=== PATIENT | male | born 1995 | race Caucasian/White ===

== ENCOUNTER 2018-08-08 21:00 | Emergency (ER) | payer BC ==
[2018-08-08] MEDS ORDERED: IBUPROFEN 800 MG TAB PO ONE (21:24)
[2018-08-08] MEDS ORDERED: ACETAMINOPHEN 500 MG TAB PO ONE (21:24)
[2018-08-08] MEDS ORDERED: NS 1,000 ML IV ONE ×2 (21:26→21:37)
--- NOTE | 2018-08-08 21:39 | EDPHY ---
H & P Stated Complaint: Cough x 4 days, body aches and fever tonight Time Seen by Provider: 08/08/18 21:28 HPI/ROS: CHIEF COMPLAINT: Flu-like symptoms since 4 days HISTORY OF PRESENT ILLNESS: 23-year-old immunocompetent male, no influenza vaccination, complaining flu-like symptoms for the past 4 days. No Tylenol or Motrin [id number] remedies. He is complaining myalgia, fever, cough, rhinorrhea. REVIEW OF SYSTEMS: 10 systems reviewed and negative with the exception of the elements mentioned in the history of present illness PAST MEDICAL & SURGICAL HISTORY: No pertinent medical or surgical history no no seasonal influenza vaccination SOCIAL HISTORY: nonsmoker . PHYSICAL EXAM (Prior to examination, patient consented to physical exam, hands were washed and my usual and customary physical exam procedures followed) 1) GENERAL: Well-developed, well-nourished, alert and oriented. Appears to be in no acute distress. 2) HEAD: Normocephalic, atraumatic 3) HEENT: Pupils equal, round, reactive to light bilaterally. Sclera anicteric. Nasopharynx, oropharynx, clear, no lesions. Dry mucous membranes. No tonsillar enlargement or exudate. Ears bilaterally with normal tympanic membranes. Signs of otitis media otitis externa 4) NECK: Full range of motion, no meningeal signs. 5) LUNGS: Clear auscultation bilaterally, no wheezes, no rhonchi, no retractions. 6) HEART: Regular rate and rhythm, no murmur, no heave, no gallop. 7) ABDOMEN: No guarding, no rebound, no focal tenderness, negative McBurney's, negative Chanel's, negative Rovsing's, negative peritoneal sign, 8) MUSCULOSKELETAL: Moving all extremities, no focal areas of tenderness, no obvious trauma. No peripheral edema or discoloration. 9) BACK: No CVA tenderness, no midline vertebral tenderness, no fluctuance, no step-off, no obvious trauma, no visual or palpable abnormality. 10) SKIN: No rash, no petechiae. 11) Psychiatric: Patient is oriented X 3, there is no agitation. DIFFERENTIAL DIAGNOSIS: in no particular order including but not limited to pneumonia, bronchitis, influenza, meningitis - Personal History Current Tetanus Diphtheria and Acellular Pertussis (TDAP): Unsure - Medical/Surgical History Hx Asthma: No Hx Chronic Respiratory Disease: No Hx Diabetes: No Hx Cardiac Disease: No Hx Renal Disease: No Hx Cirrhosis: No Hx Alcoholism: No Hx HIV/AIDS: No Hx Splenectomy or Spleen Trauma: No Other PMH: "enlarged adenoids" - Social History Smoking Status: Former smoker Constitutional: Initial Vital Signs Temperature (C) 39.4 C H 08/08/18 21:13 Heart Rate 117 H 08/08/18 21:13 Respiratory Rate 18 08/08/18 21:13 Blood Pressure 122/86 H 08/08/18 21:13 O2 Sat (%) 96 08/08/18 21:13 O2 Delivery Mode Room Air Allergies/Adverse Reactions: No Known Allergies Allergy (Unverified 08/08/18 21:13) Home Medications: Medication Instructions Recorded NK [No Known Home Meds] 08/08/18 Medical Decision Making - Diagnostics Imaging Results: Imaging Impressions Chest X-Ray 08/08/18 21:35 Impression: No focal pneumonia. Images reviewed by myself ED Course/Re-evaluation: 10:06 p.m.: Re-evaluation after Tylenol Motrin, feeling improvement. Care of patient under supervision of secondary supervising physician Dr Herrera with whom I discussed case. 10:42 p.m.: Influenza a testing is positive. Discussed this with the patient. Discussed contagion precautions. He has been symptomatic for 4 days. Side treatment window. No evidence of infiltrate on exam. He is not hypoxemic. He is breathing comfortably. Pain will be discharge, supportive care, Tylenol, Motrin, fluids rest. My usual and customary discharge precautions instructions provided. Care of patient under supervision of secondary supervising physician Dr Herrera with whom I discussed case. - Data Points Laboratory Results: Laboratory Results 08/08/18 21:35 08/08/18 21:35 08/08/18 08/08/18 08/08/18 21:35 21:35 21:35 WBC 6.28 10^3/uL 10^3/uL (3.80-9.50) RBC 4.49 10^6/uL 10^6/uL (4.40-6.38) Hgb 14.2 g/dL g/dL (13.7-17.5) Hct 38.6 % L % (40.0-51.0) MCV 86.0 fL fL (81.5-99.8) MCH 31.6 pg pg (27.9-34.1) MCHC 36.8 g/dL H g/dL (32.4-36.7) RDW 11.7 % % (11.5-15.2) Plt Count 225 10^3/uL 10^3/uL (150-400) MPV 8.8 fL fL (8.7-11.7) Neut % (Auto) 78.9 % H % (39.3-74.2) Lymph % (Auto) 7.8 % L % (15.0-45.0) Kimble % (Auto) 12.4 % % (4.5-13.0) Eos % (Auto) 0.3 % L % (0.6-7.6) Baso % (Auto) 0.3 % % (0.3-1.7) Nucleat RBC Rel Count 0.0 % % (0.0-0.2) Absolute Neuts (auto) 4.95 10^3/uL 10^3/uL (1.70-6.50) Absolute Lymphs (auto) 0.49 10^3/uL L 10^3/uL (1.00-3.00) Absolute Monos (auto) 0.78 10^3/uL 10^3/uL (0.30-0.80) Absolute Eos (auto) 0.02 10^3/uL L 10^3/uL (0.03-0.40) Absolute Basos (auto) 0.02 10^3/uL 10^3/uL (0.02-0.10) Absolute Nucleated RBC 0.00 10^3/uL 10^3/uL (0-0.01) Immature Gran % 0.3 % % (0.0-1.1) Immature Gran # 0.02 10^3/uL 10^3/uL (0.00-0.10) RBC/WBC/PLT Morphology TNP Platelet Estimate TNP Sodium 138 mEq/L mEq/L (135-145) Potassium 3.5 mEq/L mEq/L (3.5-5.2) Chloride 105 mEq/L mEq/L (97-110) Carbon Dioxide 20 mEq/l L mEq/l (22-31) Anion Gap 13 mEq/L mEq/L (6-14) BUN 13 mg/dL mg/dL (7-23) Creatinine 1.0 mg/dL mg/dL (0.7-1.3) Estimated GFR > 60 Glucose 96 mg/dL mg/dL (70-100) Calcium 9.9 mg/dL mg/dL (8.5-10.4) Nasal Influenza A PCR FLU A DETECTED H (NEGATIVE) Nasal Influenza B PCR NEGATIVE FOR FLU B (NEGATIVE) Medications Given: Discontinued Medications Acetaminophen (Tylenol) 1,000 mg PO EDNOW ONE Stop: 08/08/18 21:25 Last Admin: 08/08/18 21:29 Dose: 1,000 mg Sodium Chloride (Ns) 1,000 mls @ 0 mls/hr IV ONCE ONE; Wide Open PRN Reason: Protocol Stop: 08/08/18 21:27 Last Admin: 08/08/18 21:29 Dose: 1,000 mls Sodium Chloride (Ns) 1,000 mls @ 0 mls/hr IV ONCE ONE PRN Reason: Wide Open Stop: 08/08/18 21:38 Last Admin: 08/08/18 22:07 Dose: 1,000 mls Ibuprofen (Motrin) 800 mg PO EDNOW ONE Stop: 08/08/18 21:25 Last Admin: 08/08/18 21:29 Dose: 800 mg Departure - Departure Disposition: Home, Routine, Self-Care Clinical Impression: Influenza A Condition: Good Instructions: Influenza (ED) Additional Instructions: Return to the emergency department immediately for change in breathing habits, change in voice, change in swallowing habits, change in mental status, or any other symptoms that concern you. Minimize your contact with other people. Adult Pain & Fever Control: We recommend Acetaminophen (Tylenol) and Ibuprofen (Motrin,Advil) for pain and fever control. When fever is high or pain severe, both drugs can be used at the same time, but at different intervals. Please note the time differences. Your dose is: Acetaminophen 1000mg every 6 hours Ibuprofen 800mg every 6 hours with food OR N Note: do not take Acetaminophen with Hydrocodone (Vicodin, Lortab) or Oycodone (Percocet). These medications also contain Acetaminophen. No more than 3000mg of Acetaminophen should be taken in 24 hours (for an adult). Referrals: [facility],. [Clinic] - 2-3 days, call for appt.
[2018-08-08 21:43] LABS: PLATELET COUNT 225 10^3/uL (150-400)
[2018-08-08 22:46] VITALS: BP 112/44
== END 2018-08-08 22:55 | disposition home or self-care (01) ==
DX: J10.1 Influenza due to other identified influenza virus with other respiratory manifestations (principal); D84.9 Immunodeficiency, unspecified